=== PATIENT | female | born 1990 | race Caucasian/White ===

== ENCOUNTER 2018-12-13 08:38 | Emergency (ER) | payer SELFPAY ==
[~2018-12-13] VITALS: Ht 152.4 cm; Wt 54.6 kg
[~2018-12-13 08:38] MED LIST: IBUP-1561 PO
[2018-12-13 08:48] VITALS: BP 125/51; PULSE 86; RESP 17; Ht 152.4 cm; Wt 54.6 kg
--- NOTE | 2018-12-13 09:33 | ERD ---
ER Documentation Chief Complaint Chief Complaint PAIN ON LEFT SIDE X2 DAYS HPI Patient is a 28-year-old female with no known past medical history presenting to the clinic for bilateral flank pain X 4 years. Patient reports pain comes on and off that resolves without treatment. Patient admits that her pain has worsened as of 1 month ago and rates the pain 5 out of 10. Patient describes the pain as sharp and colicky. She admits to one episode of NBNB emesis 4 days ago and denies nausea. Patient denies fever, chills, night sweats, suprapubic pain, dysuria, urinary urgency, vaginal discharge, vaginal bleeding, hematochezia, melena. Patient denies take any OTC medication. ROS All systems reviewed and are negative except as per history of present illness. Medications Home Meds Active Scripts Ibuprofen* (Motrin*) 400 Mg Tab, 400 MG PO Q8, #30 TAB Prov:CATHERINE SALDIVAR PA-C 12/13/18 Allergies Allergies: Coded Allergies: No Known Drug Allergies (Verified Allergy, Mild, 11/13/09) PMhx/Soc Medical and Surgical Hx: pt denies Medical Hx, pt denies Surgical Hx History of Surgery: No Anesthesia Reaction: No Hx Neurological Disorder: No Hx Respiratory Disorders: No Hx Cardiac Disorders: No Hx Psychiatric Problems: No Hx Miscellaneous Medical Probl: No Hx Alcohol Use: Yes Hx Substance Use: Yes (marijuana) Hx Tobacco Use: No Smoking Status: Never smoker FmHx Family History: No diabetes, No coronary disease, No other Physical Exam Vitals Vital Signs Date Temp Pulse Resp B/P (MAP) Pulse Ox O2 O2 Flow FiO2 Time Delivery Rate 12/13/18 97.5 86 17 125/51 100 08:48 (75) Physical Exam Const: No acute distress Head: Atraumatic Resp: Clear to auscultation bilaterally Cardio: Regular rate and rhythm, no murmurs Abd: Soft, non tender, non distended. Normal bowel sounds. Negative Parrish sign, Rovsing sign, McBurney's point tenderness, guarding, rebound tenderness, Cavendish sign, Whatley Juarez sign. Back: No midline or flank tenderness. Negative CVAT. Psych: Normal Mood and Affect Result Diagram: 12/13/18 0935 12/13/18 0935 Results 24 hrs Laboratory Tests Test 12/13/18 09:35 12/13/18 09:41 White Blood Count 4.7 10^3/ul Red Blood Count 4.46 10^6/ul Hemoglobin 13.8 g/dl Hematocrit 41.0 % Mean Corpuscular Volume 91.9 fl Mean Corpuscular Hemoglobin 30.9 pg Mean Corpuscular Hemoglobin Concent 33.7 g/dl Red Cell Distribution Width 12.2 % Platelet Count 243 10^3/UL Mean Platelet Volume 10.9 fl Immature Granulocytes % 0.200 % Neutrophils % 55.4 % Lymphocytes % 31.9 % Monocytes % 10.4 % Eosinophils % 1.9 % Basophils % 0.2 % Nucleated Red Blood Cells % 0.0 /100WBC Immature Granulocytes # 0.010 10^3/ul Neutrophils # 2.6 10^3/ul Lymphocytes # 1.5 10^3/ul Monocytes # 0.5 10^3/ul Eosinophils # 0.1 10^3/ul Basophils # 0.0 10^3/ul Nucleated Red Blood Cells # 0.0 10^3/ul Urine Color YELLOW Urine Clarity CLOUDY Urine pH 6.0 Urine Specific [place] 1.021 Urine Ketones NEGATIVE mg/dL Urine Nitrite NEGATIVE mg/dL Urine Bilirubin NEGATIVE mg/dL Urine Urobilinogen NEGATIVE mg/dL Urine Leukocyte Esterase NEGATIVE Kaye/ul Urine Microscopic RBC 15 /HPF Urine Microscopic WBC 6 /HPF Urine Squamous Epithelial Cells MANY /HPF Urine Bacteria FEW /HPF Urine Mucus MODERATE /HPF Urine Hemoglobin NEGATIVE mg/dL Urine Glucose NEGATIVE mg/dL Urine Total Protein NEGATIVE mg/dl Sodium Level 139 mmol/L Potassium Level 4.2 mmol/L Chloride Level 106 mmol/L Carbon Dioxide Level 27 mmol/L Anion Gap 6 Blood Urea Nitrogen 15 mg/dl Creatinine 0.74 mg/dl Est Glomerular Filtrat Rate mL/min > 60 mL/min Glucose Level 94 mg/dl Calcium Level 9.7 mg/dl Total Bilirubin 0.4 mg/dl Direct Bilirubin 0.00 mg/dl Indirect Bilirubin 0.4 mg/dl Aspartate Amino Transf (AST/SGOT) 27 IU/L Alanine Aminotransferase (ALT/SGPT) 27 IU/L Alkaline Phosphatase 51 IU/L Total Protein 8.2 g/dl Albumin 4.7 g/dl Globulin 3.50 g/dl Albumin/Globulin Ratio 1.34 POC Beta HCG, Qualitative NEGATIVE Procedures/MDM Patient was seen and evaluated for bilateral flank pain X 4 years. CBC, CMP, urinalysis are grossly unremarkable. Urine negative. Low suspicion for nephrolithiasis, pyelonephritis, colitis, appendicitis, cholecystitis, pancreatitis. Patient has an unremarkable physical exam with normal lab values at this time that requires no further investigation. Patient stable ready for discharge. Follow-up with PCP. Departure Diagnosis: Primary Impression: Flank pain Condition: Stable Patient Instructions: Flank Pain, Uncertain Cause Referrals: [facility] Additional Instructions: Patient advised to return to the ED immediately for new or worsening symptoms. Patient advised to follow up with primary care provider in the next 24-48 hours. Patient verbalized understanding and agrees with treatment plan and course of action. If patient has no primary care they may follow up with [facility] + [facility] [address] [place] [id number] or [facility] [address] [place] [address] or [facility] [address] [place] [address] CATHERINE SALDIVAR PA-C Dec 13, 2018 09:33
== END 2018-12-13 10:38 | disposition home or self-care (01) ==
LOC: FTE 08:38
DX: R10.9 Unspecified abdominal pain (principal)
CPT/HCPCS: 36415; 80053; 81001; 81025; 85025; 99283